=== PATIENT | female | born 1965 | race Caucasian/White ===

== ENCOUNTER 2016-07-16 13:45 | Emergency (ER) | payer OTHER ==
--- NOTE | ~2016-07-16 | CR173 ---
[facility]. [facility] A Service of [facility] & [facility] RADIOLOGY TEXT RESULTS PATIENT: DEVORAH PHAN LOCATION: SED : 61 UNIT #: [id number] AGE: [address]: Tone Aquino MD SEX: F ORDER DR: [id number] [place] [id number] E MR#: [id number] Acc #: [id number] NAME: DEVORAH PHAN : 1965 SEX: F STUDY DATE/TIME: 07/16/2016 14:00 UNIT: SED ROOM: STUDY DESCRIPTION: CR Knee 3 Views Rt Attending Physician: Tone Aquino M.D. Ordering Physician: Tone Aquino M.D. MEDICAL IMAGING REPORT This report is preliminary unless electronic signature is present. EXAM 3 views of the right knee INDICATIONS Pain after tripping today at 12:30 p.m. Patient fell and landed on her knee. FINDINGS No acute fracture or subluxation of the right knee is identified. There is no suprapatellar effusion. No focal soft tissue abnormalities are seen. Patient does have some degenerative changes involving the knee and I suspect there are also some postsurgical changes within the proximal tibia. Please correlate with operative history. IMPRESSION No acute finding. Dictated by... Lia Peng M.D. THIS IS AN ELECTRONICALLY VERIFIED REPORT Lia Peng M.D. at 07/17/2016 12:50 PM AFF/pcl TD: 07/16/2016 19:03 JOB #: [id number] MEDICAL IMAGING REPORT
[~2016-07-16 13:45] MED LIST: LEVOXYL PO
== END 2016-07-16 15:48 | disposition home or self-care (01) ==
LOC: SED 13:45
DX: S83.511A Sprain of anterior cruciate ligament of right knee, initial encounter (principal); Z79.899 Other long term (current) drug therapy; W18.30XA Fall on same level, unspecified, initial encounter; Y92.009 Unspecified place in unspecified non-institutional (private) residence as the place of occurrence of the external cause
CPT/HCPCS: 29505; 73562; 99283